=== PATIENT | female | born 1980 | race Caucasian/White ===

== ENCOUNTER → 2022-08-10 09:55 | Outpatient (REF) | payer OTHER, SELFPAY ==
--- NOTE | 2022-08-10 10:02 | ECG_ITS ---
Test Reason : PREOP Blood Pressure : / mmHG Vent. Rate : 080 BPM Atrial Rate : 080 BPM P-R Int : 142 ms QRS Dur : 110 ms QT Int : 400 ms P-R-T Axes : 018 -17 010 degrees QTc Int : 461 ms Normal sinus rhythm Minimal voltage criteria for LVH, may be normal variant ( Sidney product ) Borderline ECG No previous ECGs available Referred By: Anirudh Pascual Electronically Signed By:Reynaldo Anthony
[2022-08-10 10:15] LABS: MANUAL DIFF FLAG NO
[2022-08-10 11:03] LABS: Basophils Percent Auto 0.3 % (0-2); Eosinophils Absolute Auto 0.2 X10*3/uL (0.0-0.4); Eosinophils Percent Auto 2.4 % (0-4); Hematocrit 37.8 % (37.0-47.0); Hemoglobin 12.7 g/dl (12.0-16.0); Imm Gran Abs Auto 0.03 X10*3/uL (0.00-0.03); Imm Gran Pct Auto 0.4 % (0.0-0.4); Lymphocytes Absolute Auto 2.4 X10*3/uL (1.2-4.9); Lymphocytes Percent Auto 33.2 % (20-40); Mean Corpuscular HGB Conc 33.6 g/dl (31.0-35.0); Mean Corpuscular Hemoglobin 28.2 pg (27.0-33.0); Mean Platelet Volume 10.9 fL (9.4-12.3); Monocytes Absolute Auto 0.5 X10*3/uL (0.1-1.2); Monocytes Percent Auto 6.2 % (2-11); Neutrophils Absolute Auto 4.2 x10*3/uL (2.0-8.3); Neutrophils Percent Auto 57.5 % (45-73); Platelet Count 261 X10*3/uL (160-400); Red Cell Distribution Width 13.2 % (11.0-16.0); White Blood Count 7.2 X10*3/uL (4.8-10.8)
[2022-08-10 11:12] LABS: Estimated Average Glucose 126 mg/dL
[2022-08-10 11:56] LABS: Alanine Aminotransferase 40 U/L (0-31); Albumin Level 3.9 g/dL (3.5-5.0); Alkaline Phosphatase 99 U/L (39-117); Anion Gap 12 (12-20); Aspartate Amino Transferase 21 U/L (5-31); Bilirubin Total 0.6 mg/dL (0.0-1.0); Blood Urea Nitrogen 16 mg/dL (9-16); C Reactive Protein 2.44 mg/dL (< or = 0.50); Carbon Dioxide 27 mmol/L (22-29); Chloride 101 mmol/L (96-108); Cholesterol 152 mg/dL; Estimated Glomerular Filt Rate > 60; Ferritin 58 ng/mL (10-250); Glucose Random 101 mg/dL (60-115); HDL Cholesterol 45 mg/dL; Insulin 14 uU/mL (2-29); Iron 76 mcg/dL (30-160); LDL Cholesterol Calculated 93 mg/dl; Percent Iron Saturation 25 % (15-50); Potassium 4.3 mmol/L (3.3-5.1); Sodium 136 mmol/L (135-145); TSH reflex Free T4 1.42 uIU/mL (0.32-4.0); Total Iron Binding Capacity 300 mcg/dL (228-428); Total Protein 6.8 g/dL (6.5-8.0); Triglycerides 73 mg/dL; Unsaturated Iron Binding 224 ug/dL; Vitamin D 25-OH Total 19.8 ng/mL (>30)
[2022-08-10 12:07] LABS: Folate 9.5 ng/mL (> or = 4.0); Vitamin B12 238 pg/mL (200-900)
[2022-08-13 17:47] LABS: Calcium (PTHI) 8.9 mg/dL (8.6-10.2); PTHI 52 pg/mL (16-77)
[2022-08-14 17:29] LABS: Vitamin A 31 mcg/dL (38-98)
[2022-08-14 17:44] LABS: Zinc 76 mcg/dL (60-130)
[2022-08-15 10:13] LABS: Vitamin B1 10 nmol/L (8-30)
== END ==
LOC: HO.CARD 09:55
PROVIDERS: PCP Nurse Practitioner; Visit Provider Surgery
DX: E66.01 Morbid (severe) obesity due to excess calories (principal); I10 Essential (primary) hypertension
CPT/HCPCS: 36415; 71046; 80053; 80061; 82306; 82607; 82728; 82746; 83013; 83036; 83525; 83540; 83970; 84425; 84443; 84590; 84630; 85025; 86140; 93005; 99211

== ENCOUNTER 2022-08-10 15:13 | Outpatient (REF) | payer OTHER, SELFPAY ==
[2022-08-11 13:19] LABS: H Pylori Breath Test Negative (Negative)
== END 2022-08-10 15:14 | disposition home or self-care (01) ==
LOC: HO.LNP 15:13
PROVIDERS: Visit Provider Surgery
DX: Z13.89 Encounter for screening for other disorder (principal)
CPT/HCPCS: 83013

== ENCOUNTER → 2022-08-27 11:00 | Outpatient (BNVA) | payer OTHER, SELFPAY | PROVIDERS: PCP Nurse Practitioner; Visit Provider Counselor Mental Health | DX: F32.0 Major depressive disorder, single episode, mild (principal); E66.01 Morbid (severe) obesity due to excess calories; I10 Essential (primary) hypertension | CPT/HCPCS: 90791 ==

== ENCOUNTER → 2022-08-28 08:22 | Outpatient (BNVA) | payer OTHER, SELFPAY | PROVIDERS: PCP Nurse Practitioner; Visit Provider Surgery | DX: Z13.89 Encounter for screening for other disorder (principal) ==

== ENCOUNTER → 2022-08-31 11:15 | Outpatient (BNVA) | payer OTHER, SELFPAY | PROVIDERS: PCP Nurse Practitioner; Visit Provider Dietitian, Registered | DX: E66.01 Morbid (severe) obesity due to excess calories (principal); I10 Essential (primary) hypertension | CPT/HCPCS: 97802 ==